=== PATIENT | male | born 1980 | race Caucasian/White ===

== ENCOUNTER 2017-01-17 17:22 | Emergency (ER) | payer MEDICAID ==
--- NOTE | 2017-01-17 17:45 | Emergency Department Record ---
History of Present Illness - General Chief complaint: Rectal bleeding Stated complaint: RECTAL DISCOMFORT Time Seen by Provider: 01/17/17 17:33 Source: Patient Mode of Arrival: Ambulatory Limitations: No limitations - History of Present Illness Initial comments: The patient has been having sharp rectal pain for a week. He denies any swelling or blood in his BM's but has had blood on the TP. There is no reported AP, nausea, vomiting, or dysuria. The patient does have a hx of hemorrhoids but they are not usually this painful. MD complaint: Blood on toilet paper Onset/Timin -: Week(s) Quality: Sharp Consistency: Constant Improves with: None Worsens with: Bowel movement Context: Hemorrhoids Associated Symptoms: Denies other symptoms Treatments Prior to Arrival: OTC meds - Related Data Home Medications Medication Instructions Recorded Confirmed Last Taken Albuterol Sulfate [Proair Hfa] 1 puff IH ASDIR PRN 06/03/16 01/17/17 Unknown Ibuprofen [Motrin] 800 mg PO Q6H PRN 06/03/16 01/17/17 06/03/16 Previous Rx's Medication Instructions Recorded Hydrocortisone/Pramoxine 10 gm RC BID #1 foam 01/17/17 [Proctofoam-Hc Foam] Allergies Allergy/AdvReac Type Severity Reaction Status Date / Time cephalexin monohydrate Allergy HYPERSENSIT Verified 01/17/17 17:35 [From Keflex] IVITY Penicillins Allergy HYPERSENSIT Verified 01/17/17 17:35 IVITY Travel Screening - Travel/Exposure Within Last 30 Days Have you traveled within the last 30 days?: No Review of Systems Constitutional: Denies: Chills, Fever Past Medical History - SOCIAL HISTORY Smoking Status: Current every day smoker Alcohol Use: None Drug Use: None - RESPIRATORY Hx Respiratory Disorders: Yes Hx Asthma: Yes - CARDIOVASCULAR Hx Cardio Disorders: No - NEURO Hx Neuro Disorders: No - GI Hx GI Disorders: Yes Hx Ulcer: Yes - Hx Genitourinary Disorders: No - ENDOCRINE Hx Endocrine Disorders: No - MUSCULOSKELETAL Hx Musculoskeletal Disorders: No Hx Back Injury: Yes - PSYCH Hx Psych Problems: No - HEMATOLOGY/ONCOLOGY Hx Hematology/Oncology Disorders: No Family Medical History Any Significant Family History?: No Physical Exam - General General Appearance: Alert, Oriented x3, Cooperative, No acute distress - Head Head exam: Atraumatic - Eye Eye exam: Normal appearance, PERRL Pupils: Normal accommodation - ENT ENT exam: Normal exam, Mucous membranes moist, Normal external ear exam, Normal orophraynx, TM's normal bilaterally Ear exam: Normal external inspection. negative: External canal tenderness Nasal Exam: Normal inspection. negative: Discharge, Sinus tenderness Mouth exam: Normal external inspection, Tongue normal Teeth exam: Normal inspection. negative: Dental caries Throat exam: Normal inspection. negative: Tonsillar erythema, Tonsillar exudate - Neck Neck exam: Normal inspection, Full ROM. negative: Tenderness - Respiratory Respiratory exam: Normal lung sounds bilaterally. negative: Respiratory distress - Cardiovascular Cardiovascular Exam: Regular rate, Normal rhythm, Normal heart sounds - GI/Abdominal GI/Abdominal exam: Soft, Normal bowel sounds. negative: Tenderness - Rectal Rectal exam: Heme (-) stool, Normal inspection, Normal rectal tone, Tenderness ( The anal verge is very tender to palpation which does reproduce the patient's pain. There is no obvious anal fissure, swelling, erythema and there clearly is no abscess. ). negative: Bloody stool, Decreased rectal tone, Fecal impaction, Hemorrhoids - Extremities Extremities exam: Normal inspection, Full ROM, Normal capillary refill. negative: Tenderness Course Vital Signs 01/17/17 17:28 Temperature 98.0 F Pulse Rate 79 Respiratory 20 Rate Blood Pressure 147/91 Pulse Ox 100 - Reevaluation(s) Reevaluation #1: I did explain to the patient that I do not see any specific abnormality at this time but his anal verge is clearly where the pain is coming from. The patient is to take Tylenol or Motrin for pain along with a stool softener and Proctofoam. He is to see a PCP next week if not better and may need a GI doctor referral at that time. 01/17/17 17:43 Disposition Disposition: Discharge Clinical Impression: Rectal pain Disposition: Home, Self-Care Condition: (2) Stable Instructions: Rectal Pain (ED) Additional Instructions: Please take Tylenol or Motrin for pain and use an OTC stool softener until better. Please use the Hemorrhoid medicine as directed. Please see a PCP next week for recheck and possibly to obtain a GI doctor referral if not better. Prescriptions: Hydrocortisone/Pramoxine [Proctofoam-Hc Foam] 10 gm RC BID #1 foam Forms: Patient Portal Access Time of Disposition: 17:47 Quality - Quality Measures Quality Measures: N/A - Blood Pressure Screening View Details: Yes Blood Pressure Classification: Hypertensive Reading Systolic Measurement: 147 Diastolic Measurement: 91 Screening for High Blood Pressure: < Pre-Hypertensive BP, F/U Documented > [ G8950] Pre-Hypertensive Follow-up Interventions: Follow-up with rescreen every year.
== END 2017-01-17 17:56 | disposition home or self-care (01) ==
LOC: ER 17:22
DX: K62.89 Other specified diseases of anus and rectum (principal)
CPT/HCPCS: 99282

== ENCOUNTER 2017-06-22 19:02 | Emergency (ER) | payer MEDICAID ==
--- NOTE | 2017-06-22 19:28 | Emergency Department Record ---
History of Present Illness - General Chief Complaint: Ankle/Foot Injury Stated Complaint: INJURY RT TOE ON RT FOOT Time Seen by Provider: 06/22/17 19:22 Source: Patient Mode of Arrival: Ambulatory Limitations: No limitations - History of Present Illness Initial Comments: 37 yo male presents to ED for evaluation of right little toe pain that began this evening. Patient reports "I thinks it's broken or dislocated", denies injury however. Patient reports a history of DDD and arthritis, and reports that he is being worked up for colon cancer currently as well. MD Complaint: Foot injury Onset/Timin -: Days(s) Injury: Toes: Right Type of Injury: Blunt Place: Home Severity: Moderate Improves With: Nothing Worsens With: Movement, Weight bearing - Related Data Allergies Allergy/AdvReac Type Severity Reaction Status Date / Time cephalexin monohydrate Allergy HYPERSENSIT Unverified 03/29/17 20:18 [From Keflex] IVITY Penicillins Allergy HYPERSENSIT Unverified 03/29/17 20:18 IVITY Review of Systems Constitutional: Denies: Chills, Fever, Malaise, Night sweats Eyes: Denies: Eye discharge, Eye pain ENT: Denies: Congestion, Ear pain, Epistaxis Respiratory: Denies: Cough, Dyspnea Cardiovascular: Denies: Chest pain, Dyspnea on exertion Endocrine: Denies: Fatigue, Heat or cold intolerance Gastrointestinal: Denies: Abdominal pain, Nausea, Vomiting Genitourinary: Denies: Incontinence, Retention Musculoskeletal: Reports: Arthralgia. Denies: Back pain, Gout, Joint swelling Skin: Denies: Bruising, Change in color Neurological: Denies: Abnormal gait, Confusion, Headache, Seizure Psychiatric: Denies: Anxiety Hematological/Lymphatic: Denies: Anemia, Blood Clots Past Medical History - SOCIAL HISTORY Smoking Status: Current every day smoker Drug Use: None - RESPIRATORY Hx Respiratory Disorders: Yes Hx Asthma: Yes - CARDIOVASCULAR Hx Cardio Disorders: No - NEURO Hx Neuro Disorders: No - GI Hx GI Disorders: Yes Hx Ulcer: Yes - Hx Genitourinary Disorders: No - ENDOCRINE Hx Endocrine Disorders: No - MUSCULOSKELETAL Hx Musculoskeletal Disorders: No Hx Back Injury: Yes - PSYCH Hx Psych Problems: No - HEMATOLOGY/ONCOLOGY Hx Hematology/Oncology Disorders: No Physical Exam - General General Appearance: Alert, Oriented x3, Cooperative, Other (on cell phone during examination, well appearing) Limitations: No limitations - Head Head exam: Atraumatic, Normocephalic, Normal inspection Head exam detail: negative: Abrasion, Contusion, Zepeda's sign, General tenderness, Hematoma, Laceration - Eye Eye exam: Normal appearance. negative: Conjunctival injection, Periorbital swelling, Periorbital tenderness, Scleral icterus - ENT Ear exam: negative: Auricular hematoma, Auricular trauma Nasal Exam: negative: Active bleeding, Discharge Mouth exam: negative: Drooling, Laceration, Muffled voice, Tongue elevation - Neck Neck exam: Normal inspection. negative: Meningismus, Tenderness - Respiratory Respiratory exam: Normal lung sounds bilaterally. negative: Rales, Respiratory distress, Rhonchi, Stridor - Cardiovascular Cardiovascular Exam: Regular rate, Normal rhythm, Normal heart sounds - GI/Abdominal GI/Abdominal exam: Soft. negative: Rebound, Rigid, Tenderness - Rectal Rectal exam: Deferred - exam: Deferred - Extremities Extremities exam: Tenderness (TTP and mild STS over sue right little toe, FROM on examination). negative: Calf tenderness, Pedal edema - Back Back exam: Denies: CVA tenderness (R), CVA tenderness (L) - Neurological Neurological exam: Alert, Normal gait, Oriented X3 - Psychiatric Psychiatric exam: Normal affect, Normal mood - Skin Skin exam: Normal color. negative: Abrasion Type of lesion: negative: abrasion Course Vital Signs 06/22/17 19:18 Temperature 98.5 F Pulse Rate [ 108 H Pulse Ox Probe] Respiratory 20 Rate Blood Pressure 136/103 [Left Arm] Pulse Ox 98 - Reevaluation(s) Reevaluation #1: 06/22/17 19:55 Right toes: Non-displaced proximal phalanx fracture 5th toe. Patient was updated on all results, will administer a post-op shoe for support and have the patient follow-up with Dr. Richardson in the [facility]. Disposition Disposition: Discharge Clinical Impression: Toe fracture, right Qualifiers: Encounter type: initial encounter Toe: lesser toe Fracture type: closed Phalanx : middle Fracture alignment: nondisplaced Qualified Code(s): S92.524A - Nondisplaced fracture of middle phalanx of right lesser toe(s), initial encounter for closed fracture Disposition: Home, Self-Care Condition: (2) Stable Instructions: Toe Fracture (ED) Additional Instructions: Return to ED if your symptoms worsen or if you have any concerns. Ibuprofen as needed. Follow-up with Dr. Richardson in the [facility] as directed. Referrals: SERAFIN RICHARDSON [DOCTOR OF PODIATRY MEDICINE] - [facility] [Provider Group] Forms: Patient Portal Access Time of Disposition: 20:07 Quality - Quality Measures Quality Measures: N/A - Blood Pressure Screening Does Patient Have Any of the Following: No Blood Pressure Classification: Hypertensive Reading Systolic Measurement: 134 Diastolic Measurement: 90 Screening for High Blood Pressure: < First Hypertensive BP, F/U Documented > [ G8950] First Hypertensive Follow-up Interventions: Referral to alternative/primary care provider.
--- NOTE | 2017-06-23 09:50 | RADIOLOGY REPORT ---
EXAM: RIGHT LITTLE TOE HISTORY: RIGHT LITTLE TOE INJURY. TECHNIQUE: Three views of the right little toe were obtained. Comparison: None. FINDINGS: There is a nondisplaced fracture of the proximal phalanx of the right little toe. The bones and joints otherwise are unremarkable. IMPRESSION: NONDISPLACED FRACTURE PROXIMAL PHALANX RIGHT LITTLE TOE. JOB NUMBER: [id number] MTDD
== END 2017-06-22 20:12 | disposition home or self-care (01) ==
LOC: ER 19:02
DX: S92.524A Nondisplaced fracture of middle phalanx of right lesser toe(s), initial encounter for closed fracture (principal); W22.8XXA Striking against or struck by other objects, initial encounter; Y93.29 Activity, other involving ice and snow; Y92.007 Garden or yard of unspecified non-institutional (private) residence as the place of occurrence of the external cause; F17.210 Nicotine dependence, cigarettes, uncomplicated
CPT/HCPCS: 73660; 99283